=== PATIENT | female | born 1965 | race Caucasian/White ===

== ENCOUNTER 2020-08-27 01:01 | Observation (INO) ==
[2020-08-27 02:32] LABS: ABS Basophils 0.1 10^3/ul (0-0.2); ABS Eosinophils 0.1 10^3/ul (0-0.6); ABS Lymphocytes 2.9 10^3/ul (1.0-4.8); ABS Monocytes 0.6 10^3/ul (0-0.8); ABS Neutrophils 2.1 10^3/ul (1.5-7.7); Eosinophil % 2.2 %; Hematocrit 41 % (35-47); Mean Corpuscular HGB Conc 34 g/dL (31-36); Mean Corpuscular Hemoglobin 30 pg (27-31); Mean Corpuscular Volume 87 fL (80-97); Mean Platelet Volume 8.6 fL (7.4-10.4); Nucleated Red Blood Cells % 0.1; Platelet Count 227 10^3/uL (150-450); Red Blood Count 4.69 10^6 /uL (3.70-4.87); Red Cell Distribution Width 13 % (10-15); White Blood Count 5.7 10^3/uL (3.5-10.8)
[2020-08-27 03:01] LABS: Albumin 4.4 g/dL (3.2-5.2); Albumin/Globulin Ratio 1.8 (1-3); BUN/Creatinine Ratio 13.8 (8-20); Calcium 9.6 mg/dL (8.6-10.3); EGFR African American 90.4 (>60); EGFR Non-African American 74.7 (>60); Globulin 2.4 g/dL (2-4); Indirect Bilirubin 0.7 mg/dL (0.3-1.0); Magnesium 2.1 mg/dL (1.9-2.7); Potassium 3.7 mmol/L (3.5-5.0); Total Bilirubin 0.8 mg/dL (0.2-1.0); Total Protein 6.8 g/dL (6.4-8.9)
[2020-08-27 03:21] LABS: TSH Ultra Thyroid Stim Horm 3.9 mcIU/mL (0.34-5.60)
[2020-08-27 03:23] LABS: Free T4 1.16 ng/dL (0.61-1.12)
[2020-08-27] MEDS ORDERED: Famotidine IV 10 MG/ML 2 ml VIAL (20 mg) IV SLOW PU ONE (03:50)
[2020-08-27] MEDS ORDERED: Al Hydrox/Mg Hydrox/Simet LIQ 30 ML UDC PO ONE (03:50)
[2020-08-27] MEDS ORDERED: RANITIDINE HCL 300 MG PO ONE (04:11)
[2020-08-27] MEDS: Lactated Ringers 1000 ml BAG 1,000 ML IV ONE ×2 (06:10→07:47)
[2020-08-27] MEDS ORDERED: Atropine 0.1 MG/ML 10 ml SYR (1 mg) ONE (06:14)
[2020-08-27] MEDS ORDERED: Lactated Ringers 1000 ml BAG 1,000 ML IV ONE (08:26)
[2020-08-28 11:32] VITALS: BP 99/65
== END 2020-08-28 12:09 | disposition home or self-care (01) ==
LOC: MEDTELE 01:01 → ED 01:01 → MEDTELE 09:26
PROVIDERS: ADMIT Internal Medicine; ATTEND Internal Medicine